=== PATIENT | female | born 1975 | race African-American/Black ===

== ENCOUNTER 2022-12-21 22:29 | Emergency (ER) | payer OTHER, SELFPAY ==
--- NOTE | ~2022-12-21 | XR_ITS ---
Portable chest x-ray Comparison: None Clinical History: Chest pain Findings: Lungs are clear, without focal consolidation or pleural effusion. Cardiomediastinal silho uette is unremarkable. Bones and soft tissues are unremarkable. Impression: Normal chest. Reviewed, dictated and finalized at location M. Impression: Normal chest.
[2022-12-21 22:29] VITALS: BP 204/124; PULSE 76; RESP 15; O2SAT 100
--- NOTE | 2022-12-21 22:51 | ECG_ITS ---
Measurements Intervals [place] Rate: 78 P: 48 KS: 170 QRS: -6 QRSD: 92 T: 21 QT: 362 QTc: 414 Interpretive Statements SINUS RHYTHM DELAYED PRECORDIAL R/S TRANSITION BORDERLINE ECG NO PREVIOUS ECG AVAILABLE FOR COMPARISON Electronically Signed On 12-22-2022 6:55:15 CDT by Mak Toure D.O.
[2022-12-21] MEDS: LORazepam INJ (*CRX) 2 MG/ML VIAL 0.5 MG IV PUSH (23:07)
[2022-12-21 23:15] LABS: Basophils Percent Auto 0.7 % (0.2-1.2); Eosinophils Absolute Auto 0.1 K/mm3 (0-0.3); Eosinophils Percent Auto 1.5 % (0-4.4); Hematocrit 39.7 % (37.0-47.0); Hemoglobin 12.7 g/dL (12.0-15.0); Immature Granulocyte Absolute 0.01 K/mm3 (0.00-0.031); Immature Granulocyte Percent A 0.2 % (0-0.5); Lymphocytes Absolute Auto 1.99 K/mm3 (0.9-3.2); Lymphocytes Percent Auto 32.5 % (18.3-44.2); Mean Corpuscular Hemoglobin 28.4 pg (26-34); Mean Corpuscular Volume 88.8 fl (80-100); Mean Platelet Volume 9.6 fl (7.4-10.4); Monocytes Absolute Auto 0.5 K/mm3 (0.1-0.6); Monocytes Percent Auto 7.3 % (2.6-8.5); Neutrophils Absolute Auto 3.6 K/mm3 (1.3-6.7); Neutrophils Percent Auto 57.8 % (45.5-73.1); Platelet Count Result 262 k/mm3 (150-375); Red Blood Count 4.47 M/mm3 (4.2-5.4); White Blood Count 6.1 K/mm3 (4.5-10.0)
[2022-12-21 23:27] LABS: Alanine Aminotransferase 16 U/L (6-35); Albumin Level 3.9 g/dL (3.5-5.1); Alkaline Phosphatase 78 U/L (38-126); Anion Gap 1 mmol/L (8-16); Aspartate Amino Transferase 22 U/L (14-36); Bilirubin,Total 0.2 mg/dL (0.2-1.3); Blood Urea Nitrogen 12 mg/dL (7-17); Calcium 8.6 mg/dL (8.4-10.2); Carbon Dioxide 27 mmol/L (22-30); Chloride 106 mmol/L (98-107); Estimated CRCL calculation 96 ml/min; Estimated Glomerular Filt Rate > 60; Glucose 118 mg/dL (65-110); Lipase 53 U/L (23-300); Potassium 3.4 mmol/L (3.4-5.0); Sodium 134 mmol/L (137-145)
[2022-12-21 23:31] LABS: INR 1.1; Prothrombin Time 14.3 Seconds (11.1-14.7)
[2022-12-21 23:32] LABS: Partial Thromboplastin Time 30.7 SECONDS (22.3-36.8)
[2022-12-21 23:38] LABS: Troponin I < 0.012 ng/mL (0.000-0.034)
--- NOTE | 2022-12-22 00:15 | ED.GENADULT ---
HPI - General Adult General Chief complaint: Anxiety Stated complaint: ANXIETY ATTACK Time Seen by Provider: 12/21/22 22:41 History of Present Illness HPI narrative: Patient 47-year-old female who presents the emergency department with chief complaint of anxiety. The patient reports that she has been under somewhat stress and reports that she also has prior history of anxiety the patient reports that today she felt as though the world was caving in on her and then felt as though she had some chest discomfort and shortness of breath. Patient reports no prior history of cardiac disease reports that she does have a history of hypertension and did not take her medications until later in the evening tonight Related Data Allergies Allergy/AdvReac Type Severity Reaction Status Date / Time No Known Allergies Allergy Verified 12/21/22 22:36 Review of Systems Review of Systems: A 10 system review of systems was completed on the patient and is negative except for what is stated in the HPI. Nursing and ancillary documentation was reviewed. Exam Narrative: GENERAL: Well-appearing, well-nourished, and in no acute distress. HEAD: Normocephalic, atraumatic. EYES: PERRLA and EOMI. ENT: Nares clear, no rhinorrhea or epistaxis. Mucous membranes moist. NECK: Supple. CHEST: Clear to auscultation. No respiratory distress. HEART: Regular rate and rhythm. No murmur heard. Normal peripheral pulses. ABDOMEN: Soft, nontender, nondistended, normal active bowel sounds. EXTREMITIES: Normal range of motion. No edema. SKIN: Warm, dry, no rash. NEURO: No focal deficits. Alert and oriented x3. PSYCH: Normal mood and affect. Course Vital Signs Vital signs: Vital Signs Pulse Rate 76 12/21/22 22:29 Respiratory Rate 15 12/21/22 22:29 Blood Pressure 204/124 H 12/21/22 22:29 Pulse Oximetry 100 12/21/22 22:29 Oxygen Delivery Room Air 12/21/22 22:29 Pulse Rate 76 12/21/22 22:29 Respiratory Rate 15 12/21/22 22:29 Blood Pressure 204/124 H 12/21/22 22:29 Pulse Oximetry 100 12/21/22 22:29 Oxygen Delivery Room Air 12/21/22 22:29 Medical Decision Making MDM Narrative Medical decision making narrative: Differential diagnosis includes acute anxiety, ACS, hypertensive crisis Patient's blood pressure came down to 180/116 after she took her medications Laboratory studies showed a normal white blood cell count with a white count of 6.1 electrolytes are within normal limits liver enzymes were normal troponin was less than 0.012 lipase was 53 Chest x-ray showed no focal infiltrate or widened mediastinum EKG showed sinus rhythm rate of [address] elevation or ST depression Patient received an IV dose of Ativan in the emergency department is feeling much better The patient be given a p.o. dose of Ativan before discharge and discharged with a prescription for hydroxyzine Vital Signs Vital Signs: Vital Signs Pulse Rate 76 12/21/22 22:29 Respiratory Rate 15 12/21/22 22:29 Blood Pressure 204/124 H 12/21/22 22:29 Pulse Oximetry 100 12/21/22 22:29 Oxygen Delivery Room Air 12/21/22 22:29 Pulse Rate 76 12/21/22 22:29 Respiratory Rate 15 12/21/22 22:29 Blood Pressure 204/124 H 12/21/22 22:29 Pulse Oximetry 100 12/21/22 22:29 Oxygen Delivery Room Air 12/21/22 22:29 Lab Data 12/21/22 23:07 12/21/22 23:07 Labs: Lab Results 12/21/22 Range/Units 23:07 WBC 6.1 (4.5-10.0) K/mm3 RBC 4.47 (4.2-5.4) M/mm3 Hgb 12.7 (12.0-15.0) g/dL Hct 39.7 (37.0-47.0) % MCV 88.8 (80-100) fl MCH 28.4 (26-34) pg MCHC 32.0 (32-36) g/dl RDW 14.0 (11.5-14.5) % Plt Count 262 (150-375) k/mm3 MPV 9.6 (7.4-10.4) fl Immature Gran % (Auto) 0.2 (0-0.5) % Neut % (Auto) 57.8 (45.5-73.1) % Lymph % (Auto) 32.5 (18.3-44.2) % [place] % (Auto) 7.3 (2.6-8.5) % Eos % (Auto) 1.5 (0-4.4) % Baso % (Auto) 0.7 (0.2-1.2) % Lymph # (Aut
[2022-12-22] MEDS: LORazepam (*CRX) 1 MG TABLET PO (00:26)
[2022-12-22 00:39] VITALS: BP 156/104; PULSE 76; RESP 15; O2SAT 100
== END 2022-12-22 00:40 | disposition home or self-care (01) ==
PROVIDERS: Emergency Provider Emergency Medicine
DX: F41.9 Anxiety disorder, unspecified (principal); R06.02 Shortness of breath
CPT/HCPCS: 36415; 71045; 80053; 83690; 84484; 85025; 85610; 85730; 93005; 96374; 99284; A9270; J2060